=== PATIENT | female | born 1950 | race African-American/Black ===

== ENCOUNTER 2018-08-25 18:37 | Emergency (ER) | payer MEDICARE, MEDICAID ==
[~2018-08-25] VITALS: Ht 165.1 cm; Wt 99.8 kg
[2018-08-25] MEDS ORDERED: ATENOLOL50 MG ORAL (18:44)
--- NOTE | 2018-08-25 18:53 | NUR ---
ED Nurse Note: PT WALKED IN TO ER TODAY FROM HOME. AOX4. PT C/O RIGHT SHOULDER PAIN, 4/10 AT REST, AFTER FALL X 1 WEEK AGO. LIMITED ROM AT SHOULDER BUT FULL ROM OF ELBOW, WRIST, AND DIGITS. CIRCULATION AND SENSATION INTACT, CAP REFILL<3 SECONDS, STRONG PULSE AND MUSCLE STRENGTH OF HAND 5/5. SKIN CLEAN, DRY, AND INTACT. PT DENIES HEAD TRAUMA OR LOC.
[2018-08-25 18:54] VITALS: BP 162/82
--- NOTE | 2018-08-25 19:06 | NUR ---
ED Nurse Note: XRAY AT BEDSIDE.
--- NOTE | 2018-08-25 19:09 | NUR ---
ED Nurse Note: REPORT GIVEN TO JAKE ROSS.
--- NOTE | 2018-08-25 19:42 | Emergency Room Report ---
History of Present Illness General Chief Complaint: Upper Extremity Injury Source: Patient Present Illness HPI 68-year-old female with history of hypertension currently controlled with blood pressure medication here complaining of 1 week of right shoulder pain after a fall. Patient reports that she tried to prevent herself from falling by extending her right arm. The pain has been getting gradually worse rating it 7 out of 10 upon movement with abduction. Patient complains of pain radiation to the right forearm denying tingling and numbness. Also complains of minimal soreness of her right clavicle. Denies other injuries, head trauma, loss of consciousness, dizziness. Patient is right-handed and reports that she has history of osteoarthritis. Denies chest pain, shortness of breath, palpitation , abdominal pain, nausea vomiting and all other associated symptoms. Patient has been taking ibuprofen 800 with no relief Allergies: Coded Allergies: No Known Allergies (Unverified , 08/25/18) Patient History Past Medical History: see triage record Past Surgical History: unable to obtain Pertinent Family History: none Now: No Immunizations: UTD Reviewed Nursing Documentation: PMH: Agreed; PSxH: Agreed Nursing Documentation-PMH Past Medical History: No History, Except For Hx Hypertension: Yes Review of Systems All Other Systems: negative except mentioned in HPI Physical Exam Vital Signs Date Time Temp Pulse Resp B/P (MAP) Pulse Ox O2 Delivery O2 Flow Rate FiO2 08/25/18 18:39 98.2 65 17 168/78 (108) 99 Room Air Sp02 EP Interpretation: reviewed, normal General Appearance: normal inspection, well appearing, no apparent distress Head: normocephalic, atraumatic Eyes: bilateral eye normal inspection, bilateral eye PERRL ENT: normal ENT inspection, hearing grossly normal, normal pharynx Neck: normal inspection, full range of motion, supple, thyroid normal, no carotid bruits Respiratory: normal inspection, chest non-tender, lungs clear, no rhonchi, no wheezing Cardiovascular #1: normal inspection, normal peripheral pulses, regular rate, rhythm, no murmur, normal capillary refill Cardiovascular #2: 2+ radial (R), 2+ radial (L) Gastrointestinal: normal inspection, soft Rectal: deferred Genitourinary: no CVA tenderness Musculoskeletal: back normal, digits/nails normal, gait/station normal, normal range of motion, swelling - Right shoulder, other - Pain over right clavicle Neurologic: normal inspection, alert, oriented x3, responsive Psychiatric: normal inspection, judgement/insight normal Skin: normal inspection, normal color, no rash, warm/dry, palpation normal, other - No ecchymosis Lymphatic: normal inspection, no adenopathy Procedures Additional Procedure Procedure Narrative Sling applied to right shoulder Medical Decision Making PA Attestation All my diagnosis and treatment plans were reviewed ad discussed with my supervising physician Dr. Key Diagnostic Impression: Primary Impression: Right shoulder tendinitis Additional Impression: Right shoulder strain ER Course 68-year-old female with history of hypertension currently controlled with blood pressure medication here complaining of 1 week of right shoulder pain after a fall. Patient reports that she tried to prevent herself from falling by extending her right arm. The pain has been getting gradually worse rating it 7 out of 10 upon movement with abduction. Patient complains of pain radiation to the right forearm denying tingling and numbness. Also complains of minimal soreness of her right clavicle. Denies other injuries, head trauma, loss of consciousness, dizziness. Patient is right-handed and reports that she has history of osteoarthritis. Denies chest pain, shortness of breath, palpitation , abdominal pain, nausea vomiting and all other associated symptoms. Patient has been taking ibuprofen 800 with no relief Ddx considered but are not limited to : Right shoulder sprain, strain, fracture , clavicle fracture Vital signs: are WNL, pt. is afebrile H&PE are most consistent with: Right shoulder strain with tendinitis ORDERS: Right shoulder and clavicle x-ray, Robaxin, Voltaren gel ED INTERVENTIONS: Right arm sling DISCHARGE: At this time pt. is stable for d/c to home. Will provide printed patient care instructions, and any necessary prescriptions. Care plan and follow up instructions have been discussed with the patient prior to discharge. Patient to follow-up with the primary care provider for further therapy and further imaging such as MRI patient also has a lot of osteo-arthritic changes of the right shoulder arm sling applied and I explained to patient treatment of fracture and sprain versus strain versus tendinitis remains the same in terms of applying sling and follow-up with Ortho Other X-Ray Diagnostic Results Other X-Ray Diagnostic Results #1: X-Ray ordered: Right shoulder # of Views/Limited Vs Complete: 2 View Indication: Pain EP Interpretation: Yes PA Xray: Interpretation reviewed, by supervising MD, and agrees with findings. Interpretation: no dislocation, no soft tissue swelling, no fractures, other - Arthritic changes Impression: No acute disease Electronically Signed by: mere phillips PA-C Other X-Ray Diagnostic Results #2: X-Ray ordered: right clavicle # of Views/Limited Vs Complete: 2 View Indication: Pain EP Interpretation: Yes JENNY Xray: Interpretation reviewed, by supervising MD, and agrees with findings. Interpretation: no dislocation, no soft tissue swelling, no fractures Impression: No acute disease Electronically Signed by: mere phillips PA-C Last Vital Signs Date Time Temp Pulse Resp B/P (MAP) Pulse Ox O2 Delivery O2 Flow Rate FiO2 08/25/18 18:54 98.4 68 18 162/82 100 Room Air Disposition: HOME, SELF-CARE Condition: Stable Scripts Diclofenac Sodium (VOLTAREN) 100 Gm Gel..gram. 2 GM TP TID, #100 GM Prov: Mere Hillman 08/25/18 Methocarbamol* (ROBAXIN*) 500 Mg Tablet 500 MG PO TID, #21 TAB 0 Refills Prov: Mere Hillman 08/25/18 Patient Instructions: Bicipital Tendonitis, Tendon Injury Additional Instructions: Follow-up with a primary care provider for referral to physical therapy and further assessment MRI may be needed also you have a lot of osteoarthritic changes that can contribute to your pain take the ibuprofen 800 that you have at home in addition to Robaxin alternate between icing and heating the affected area avoid strenuous physical activity Mere Hillman Aug 25, 2018 19:42
[2018-08-25] MEDS ORDERED: VOLTAREN100 G1 TP (19:43)
[2018-08-25] MEDS ORDERED: ROBAXIN500 MG PO (19:43)
[2018-08-25 19:59] VITALS: BP 162/82
--- NOTE | 2018-08-25 19:59 | NUR ---
ER DISCHARGE NOTE: Patient is cleared to be discharged per ERMD, pt is aox4, on room air, with stable vital signs. pt was given dc and prescription instructions, pt was able to verbalize understanding, pt id band removed. pt is able to ambulate with steady gait. pt took all belongings.
--- NOTE | 2018-08-26 16:17 | Diagnostic Imaging Report ---
Indication: Pain, trauma, fall x1 week Technique: To views of the right clavicle Comparison: none Findings: No definite acute fractures. No dislocations. Note, however, the medial clavicle is not well visualized. Impression: Limited exam, due to suboptimal visualization of the medial clavicle. Correlate with clinical findings as regards to possible trauma to this area. No evidence of distal clavicular fracture.
--- NOTE | 2018-08-26 16:18 | Diagnostic Imaging Report ---
Indication: Pain, one week status post fall Technique: 3 views of the shoulder Comparison: none Findings: There are degenerative changes of the acromioclavicular joint. No acute fractures. No dislocations. The joint spaces are preserved otherwise. Impression: No acute process
== END 2018-08-25 19:45 | disposition home or self-care (01) ==
LOC: EMR 19:15
DX: S46.911A Strain of unspecified muscle, fascia and tendon at shoulder and upper arm level, right arm, initial encounter (principal); M77.9 Enthesopathy, unspecified; W19.XXXA Unspecified fall, initial encounter; Z91.81 History of falling; Y93.9 Activity, unspecified; Y92.9 Unspecified place or not applicable; I10 Essential (primary) hypertension
CPT/HCPCS: 99284